=== PATIENT | female | born 1985 | race Caucasian/White ===

== ENCOUNTER → 2017-12-04 | Outpatient (REF) ==
[2016-06-04 13:24] VITALS: BMI 42.0
[~2017-12-04] MED LIST: ACE3 PO; ACE500 PO; ALB17R INH; AMO500 PO; AZI250 PO; BUP150 PO; BUPR-121 PO; CEP250 PO; ESC10 PO; FAMO-1 PO; HYDR-317 PO; HYDR-385 PO; IBU600 PO; IBU800 PO; IBUP800T37 PO; IRON1TAB55 PO; LABE100T28 PO; LOM PO; LOR5 PO; LOR5/325 PO; NEOM10SO23 OT; NO CURRENT MEDS; OMEP-125 PO; PREN-127 PO; PRENAT PO; PRO25 PO; PROM25S PR; RABE20TA33 PO; RAN150 PO
--- NOTE | 2017-12-04 17:07 | RADIOLOGY IMAGING REPORT ---
FACILITY: [facility] - [place] PATIENT NAME: Kyung Reyes : 1985 MR: [id number] V: [id number] EXAM DATE: ORDERING PHYSICIAN: HANNAH COLE TECHNOLOGIST: [place] [facility] [place] Kyung Reyes : 1985 Visit/Account:[id number] Date of Sevice: 12/04/2017 Technique: HAND COMPLETE LEFT HISTORY: Left hand and wrist pain Comparison studies: None FINDINGS: There is no acute fracture. The alignment of the left wrist is maintained. Noted is an ovoi d radiodensity near the area of concern within the soft tissues adjacent to the lateral aspect of the radial metadiaphysis. IMPRESSION: 1. Soft tissue lesion corresponding to the area of concern near the distal left radial metadiaphysis . This probably represents the benign entity such a ganglion cyst; however, recommend MRI with and wi thout contrast for further characterization. Report Dictated By: Tj Montes DO at 12/04/2017 4:43 PM Report E-Signed By: Tj Montes DO at 12/04/2017 5:04 PM WSN:[id number]
== END ==
LOC: RAD 16:01
PROVIDERS: ATTEND Orthopaedic Surgery Orthopaedic Surgery of the Spine
DX: M79.642 Pain in left hand (principal); M25.532 Pain in left wrist

== ENCOUNTER → 2018-06-22 | Outpatient (REF) ==
[2016-06-04 13:24] VITALS: BMI 42.0
[~2018-06-22] MED LIST changes: +IOPAMIDOL 76% 75 ML INFUS BTL 75 ML ONE
--- NOTE | 2018-06-22 13:55 | RADIOLOGY IMAGING REPORT ---
FACILITY: [facility] PATIENT NAME: Kyung Reyes : 1985 MR: [id number] V: [id number] EXAM DATE: ORDERING PHYSICIAN: HIPOLITO INCE TECHNOLOGIST: Location: [facility] Patient: Kyung Reyes : 1985 Visit/Account:[id number] Date of Sevice: 06/22/2018 EXAMINATION: CT neck with IV contrast HISTORY: Bilateral upper extremity neuropathy and weakness. TECHNIQUE: Axial soft tissue neck CT with IV contrast. Sagittal and coronal reformats. One of the following dose optimization techniques was utilized in the performance of this exam: Autom ated exposure control; adjustment of the mA and/or kV according to the patient's size; or use of an i terative reconstruction technique. Specific details can be referenced in the facility's radiology C T exam operational policy. CONTRAST: 75 mL of IV [id number] COMPARISON: None available. FINDINGS: Masses/lesions: Mildly prominent nasopharyngeal lymphoid tissue and tonsils with no definite focal m ass. Airway: Negative. Lymph nodes: Mildly enlarged bilateral suprahyoid jugular chain nodes measuring up to 2.2 x 1.7 cm on the right and 1.9 x 1.2 cm on the left. Mildly prominent lateral retropharyngeal lymph nodes measuri ng up to 1.3 x 0.7 cm on the left. No enlarged lymph nodes in the lower neck or the included portion of the chest. Vessels: Negative. Musculoskeletal / Body wall: Negative. Visualized orbits / brain / paranasal sinuses: Negative. Upper chest: Negative. IMPRESSION: Mildly enlarged lymph nodes in the upper neck measuring up to 2.2 x 1.7 cm on the right a nd 1.9 x 1.2 cm on the left. Mildly prominent nasopharyngeal lymphoid tissue and tonsils. These findi ngs can be seen with infection and lymphoma. Otherwise unremarkable soft tissue neck CT with contrast . Report Dictated By: Norberto Roman MD at 06/22/2018 1:43 PM Report E-Signed By: Norberto Roman MD at 06/22/2018 1:51 PM WSN:[id number]
== END ==
LOC: CT 07:14
PROVIDERS: ATTEND Internal Medicine
DX: R53.1 Weakness (principal); G62.9 Polyneuropathy, unspecified
CPT/HCPCS: 70491; Q9967